=== PATIENT | male | born 1995 | race Caucasian/White ===

== ENCOUNTER 2023-04-04 20:05 | Emergency (ER) | payer OTHER, MEDICAID ==
[~2023-04-04] VITALS: Ht 177.8 cm; Wt 68.9 kg
[~2023-04-04 20:05] MED LIST: BACI-418 TP; CLIN300C2 PO; IBUP-2213 PO
[2023-04-04 20:26] VITALS: BP 94/65; PULSE 101; RESP 18; TEMP 99.1; O2SAT 95
[2023-04-04 21:37] LABS: FLU A ANTIGEN negative (NEGATIVE); FLU B ANTIGEN NEGATIVE (NEGATIVE)
== END 2023-04-04 20:39 | disposition left against medical advice (07) ==
LOC: MED 20:05
DX: R11.2 Nausea with vomiting, unspecified (principal); Z20.822 Contact with and (suspected) exposure to COVID-19; R73.9 Hyperglycemia, unspecified; R51.9 Headache, unspecified; R63.0 Anorexia; R61 Generalized hyperhidrosis; Z53.21 Procedure and treatment not carried out due to patient leaving prior to being seen by health care provider
CPT/HCPCS: 99281

== ENCOUNTER 2023-04-20 14:12 | Emergency (ER) | payer MEDICAID, OTHER ==
[~2023-04-20] VITALS: Ht 172.7 cm; Wt 77.1 kg
[2023-04-20 14:43] VITALS: BP 132/80; PULSE 84; RESP 17; TEMP 97.4; O2SAT 99
== END 2023-04-20 16:00 | disposition left against medical advice (07) ==
LOC: MED 14:12
DX: R55 Syncope and collapse (principal); Z53.21 Procedure and treatment not carried out due to patient leaving prior to being seen by health care provider
CPT/HCPCS: 99281